=== PATIENT | male | born 1985 | race Caucasian/White ===

== ENCOUNTER → 2018-07-01 | Outpatient (CLI) | payer BC ==
--- NOTE | 2018-07-01 10:03 | US ---
EXAMINATION TYPE: US scrotum with doppler. Grayscale and color Doppler Duplex imaging performed of t he scrotum. DATE OF EXAM: 07/01/2018 COMPARISON: NONE CLINICAL HISTORY: N50.819 Testicular pain, unspecified. injury about 5 days ago with persisting left sided pain EXAM MEASUREMENTS: TESTICLES: Right Testicle: 4.4 x 2.4 x 2.8 cm Left Testicle: 4.1 x 2.2 x 3.1 cm EPIDIDYMIS HEAD: Right Epididymis: 0.8 x 0.6 cm Left Epididymis: 1.4 x 0.8 cm Doppler performed to assess for testicular vascularity; good bilateral color flow and waveforms are s een. There is no evidence of testicular torsion. Presence of hydroceles: no Presence of varicoceles: no Left intratesticular vague hypoechoic hypervascular area, . Comparison view show asymmetric increased flow to left testicle. IMPRESSION: Asymmetric increased blood flow to left testicle could reflect infection, correlate for l eft-sided orchitis/epididymitis. Because of a vague area of slightly hypoechoic appearance in the lef t testicle a neoplasm is not entirely excluded. Advise short-term follow-up ultrasound in 1 to 2 donaldo hs time. If lesion persists at that time further management would be advised.
== END ==
LOC: RADUSWWP 09:06
PROVIDERS: ATTEND Family Medicine
DX: N50.819 Testicular pain, unspecified (principal)
CPT/HCPCS: 76870; 93975